=== PATIENT | female | born 1950 | race African-American/Black ===

== ENCOUNTER 2016-03-19 06:22 | Day surgery (SDC) | payer OTHER, BC ==
[2016-03-15 19:08] VITALS: BMI 27.5
[2016-03-19] MEDS ORDERED: SUCCINYLCHOLINE CHLORIDE 200 MG/10 ML VIAL ONE (07:08)
[2016-03-19] MEDS ORDERED: ePHEDrine SULFATE 50 MG/1 ML AMPULE ONE (07:08)
[2016-03-19] MEDS ORDERED: MIDAZOLAM HCL 2 MG/2 ML SINGLE DOSE VIAL ONE (07:08)
[2016-03-19] MEDS ORDERED: PROPOFOL 20 ML ONE (07:09)
[2016-03-19] MEDS ORDERED: LIDOCAINE HCL 2% (20ML MULTI-DOSE VIAL) NR ONE (07:23)
[2016-03-19] MEDS ORDERED: LIDOCAINE HCL 1%, 10 MG/ML (50 mL VIAL) IJ ONE (08:00)
[2016-03-19 08:49] VITALS: TEMP 97.8
[2016-03-19] MEDS ORDERED: oxyCODONE HCL 5 MG TABLET ONE ×2 (09:50→10:33)
[2016-03-19] MEDS ORDERED: KETOROLAC TROMETHAMINE 30 MG/1 ML VIAL ONE (09:58)
[2016-03-19 11:31] VITALS: BP 156/82; PULSE 66
--- NOTE | 2016-03-20 18:40 | OP ---
DATE OF OPERATION: 03/19/2016 SURGEON: Akbar Pelaez MD BOX BENDER: LORIE Penn PREOPERATIVE DIAGNOSES: 1. Right hand middle finger/third finger trigger finger/tenosynovitis. 2. Right hand fourth finger/ring finger trigger finger/tenosynovitis. 3. Right hand small finger/fifth finger trigger finger/tenosynovitis. POSTOPERATIVE DIAGNOSES: 1. Right hand middle finger/third finger trigger finger/tenosynovitis. 2. Right hand fourth finger/ring finger trigger finger/tenosynovitis. 3. Right hand small finger/fifth finger trigger finger/tenosynovitis. PROCEDURE: 1. Surgical release of trigger finger, right hand, third finger. 2. Surgical release of trigger finger, right hand, fourth finger. 3. Surgical release of trigger finger, right hand, fifth finger. FINDINGS: Third, fourth, and fifth fingers all had evidence of tenosynovitis with the same finding of thickened A1 luz and impingement upon the flexor tendons and fraying of the flexor tendons. PROCEDURE: Informed consent was obtained and taken to the operating room where the right upper extremity was prepped and draped in a sterile fashion. Tourniquet was placed in the upper arm and inflated to 250 mmHg. Starting with the third middle finger, an incision was made on the area of the A1 luz along the palm. This was taken down. The A1 luz was identified. The luz was incised with a knife and extended proximally and distally with a blunt tenotomy scissors. A curved hemostat was placed around the tendons and this allowed for bringing the tendons out of the wound. Flexion and extension was free at this point and minor fraying was debrided. No impingement was noted after release. Please note the exact same procedure was done on the fourth finger and the fifth finger. All wounds were irrigated with copious amounts of irrigation and closed with 4-0 nylon in single interrupted sutures. AKBAR PELAEZ M.D. [id number]
== END 2016-03-19 11:20 | disposition home or self-care (01) ==
LOC: FASU 06:22
PROVIDERS: ATTEND Orthopaedic Surgery
PROC: 0LN70ZZ Release Right Hand Tendon, Open Approach (ICD-10-PCS; 2016-03-19)
PROC: 0LN70ZZ Release Right Hand Tendon, Open Approach (ICD-10-PCS; 2016-03-19)
PROC: 0LN70ZZ Release Right Hand Tendon, Open Approach (ICD-10-PCS; principal; 2016-03-19 08:01)
DX: M65.331 Trigger finger, right middle finger (principal); M65.341 Trigger finger, right ring finger; M65.351 Trigger finger, right little finger

== ENCOUNTER 2017-05-02 21:07 | Emergency (ER) | payer OTHER, BC ==
[2017-05-02 21:21] VITALS: BP 132/80; PULSE 78; TEMP 98.5; BMI 28.2
--- NOTE | 2017-05-02 21:24 | PDOC ---
History of Present Illness - General Chief Complaint: Respiratory Stated Complaint: PRODUCTIVE COUGH Time Seen by Provider: 05/02/17 21:09 - History of Present Illness Initial Comments: This 67-year-old woman with a history of coronary artery disease/TIA/ hyperlipidemia presents with several day history of productive cough. She was seen by her PMD, Dr. Joaquin Phillips 4 days ago. She is given a "shot" followed by prescription for antibiotic. She believes the injection was a steroid medication . The patient has been taking the antibiotic (Augmentin) as prescribed. She presents tonight because she continues to have cough productive of yellowish green sputum and intermittent fever. She is concerned that she has pneumonia. She denies severe shortness of breath, persistent wheezing, shaking chills. Patient has no history of asthma; she was a smoker many years ago but has not smoked in recent times. Past History - Past Medical History Allergies/Adverse Reactions: Allergies Allergy/AdvReac Type Severity Reaction Status Date / Time Iodinated Contrast- Oral and Allergy Intermediate Swelling Verified 05/02/17 21: 12 IV Dye [IV Dye, Iodine Containing Contrast ] Home Medications: Ambulatory Orders Olmesartan/Hydrochlorothiazide [Benicar Hct 40-12.5 mg Tablet] 1 each PO DAILY # 0 tablet 09/22/12 Duloxetine [Cymbalta -] 30 mg PO DAILY 09/27/12 Zolpidem Tartrate [Ambien] 10 mg PO HS PRN 09/24/15 Atorvastatin Ca [Lipitor] 20 mg PO HS 05/02/17 Anemia: Yes (Occassionally) Asthma: No Cancer: No Cardiac Disorders: Yes (CAD) CVA: Yes (TIA approx 1996) COPD: No CHF: No Dementia: No Diabetes: No GI Disorders: Yes (REFLUX) Disorders: No HTN: Yes Hypercholesterolemia: No (past hx) Liver Disease: Yes (HEMANGIOMA) Seizures: No Thyroid Disease: No - Surgical History Abdominal Surgery: Yes (mystenteric cyst 10yo) Appendectomy: No Cardiac Surgery: Yes (CARDIAC STENT 11/2011) Cholecystectomy: No Lung Surgery: No Neurologic Surgery: No Orthopedic Surgery: Yes (bilateral knee, right rotator cuff repair) - Suicide/Smoking/Psychosocial Hx Smoking Status: No Smoking History: Never smoked Have you smoked in the past 12 months: Yes Number of Cigarettes Smoked Daily: 10 If you are a former smoker, when did you quit?: 8 years ago Information on smoking cessation initiated: No Hx Alcohol Use: No Drug/Substance Use Hx: No Substance Use Type: Alcohol Hx Substance Use Treatment: No Review of Systems - Review of Systems Able to Perform ROS?: Yes Comments:: 12 point review of systems is negative except for what is noted in the history of present illness *Physical Exam - Vital Signs Last Vital Signs Temp Pulse Resp BP Pulse Ox 98.5 F 78 16 132/80 100 05/02/17 21:17 05/02/17 21:17 05/02/17 21:17 05/02/17 21:17 05/02/17 21:17 - Physical Exam Comments: GENERAL: Adult female, alert and oriented 3, speaking in full sentences in no respiratory distress Temperature 98.5F, pulse oximetry 100 percent on room air, respiratory rate 16/ minute HEAD: Normal with no signs of trauma. EYES: PERRLA, EOMI, sclera anicteric, conjunctiva clear. ENT: Ears normal, nares patent, oropharynx clear without exudates. Moist mucous membranes. NECK: Normal range of motion, supple without lymphadenopathy, JVD, or masses. LUNGS: Breath sounds equal, clear to auscultation bilaterally. No wheezes, and no crackles. HEART:Regular rate and rhythm, normal S1 and S2 without murmur, rub or gallop. ABDOMEN:.normal bowel sounds No guarding,tenderness or rebound.No masses No distention. EXTREMITIES: Normal range of motion, no edema. No clubbing or cyanosis. No erythema, or tenderness. NEUROLOGICAL: Cranial nerves II through XII grossly intact. Normal speech. No focal neurological deficits. MUSCULOSKELETAL: Back non-tender to palpation, no CVA tenderness SKIN: Warm, Dry, normal turgor, no rashes or lesions noted. Progress Note - Progress Note Progress Note: Although the patient has no clear signs of pneumonia on her exam with no fever, excellent oxygenation, and clear lungs on auscultatory exam, chest x-ray was performed to evaluate for pneumonia. No evidence of infiltrate or effusion on chest x-ray. Patient reassured that she should continue Augmentin for full course as prescribed. Presentation consistent with bronchitis, exacerbation of COPD/ asthma She should drink plenty of fluids and introduce humidified air in her home environment through vaporizer. She should follow-up with as planned and return to the emergency room if she has severe shortness of breath/wheezing/ persistent high fever *DC/Admit/Observation/Transfer Diagnosis at time of Disposition: Bronchitis Strain of chest wall Qualifiers: Encounter type: initial encounter Qualified Code(s): S29.011A - Strain of muscle and tendon of front wall of thorax, initial encounter - Discharge Dispostion Disposition: HOME Condition at time of disposition: Stable - Referrals Referrals: Joaquin Phillips MD [Primary Care Provider] - 1 week - Patient Instructions Printed Discharge Instructions: DI for Acute Bronchitis Additional Instructions: Drink plenty of fluids Continue Augmentin as prescribed Use a vaporizer, especially at night Return to ER if you have persistent high fever/difficulty breathing/wheezing Follow-up with Dr. Phillips within 1 week - Post Discharge Activity
== END 2017-05-02 22:24 | disposition home or self-care (01) ==
LOC: FER 21:07
DX: S29.011A Strain of muscle and tendon of front wall of thorax, initial encounter (principal); J40 Bronchitis, not specified as acute or chronic; Z87.891 Personal history of nicotine dependence; Z95.5 Presence of coronary angioplasty implant and graft; I25.10 Atherosclerotic heart disease of native coronary artery without angina pectoris; K21.9 Gastro-esophageal reflux disease without esophagitis
CPT/HCPCS: 71046-TC-FY; 99281-25

== ENCOUNTER 2017-09-02 06:06 | Day surgery (SDC) | payer OTHER, BC ==
[2017-08-26 13:05] VITALS: BMI 28.2
[2017-09-02] MEDS ORDERED: ROPIVACAINE HCL 0.5% 30ML VIAL ONE (07:05)
[2017-09-02] MEDS ORDERED: MIDAZOLAM HCL 2 MG/2 ML SINGLE DOSE VIAL ONE (07:05)
[2017-09-02] MEDS ORDERED: EPINEPHrine 1:1,000 1 MG/1 ML - 30ML VIAL (INJECTION) ONE (07:08)
[2017-09-02] MEDS ORDERED: DEXAMETHASONE SOD PHOSPHATE 4 MG/1 ML VIAL ONE (07:29)
[2017-09-02] MEDS ORDERED: ceFAZolin SODIUM 1 GM VIAL ONE (07:29)
[2017-09-02] MEDS ORDERED: ONDANSETRON 4 MG/2 ML VIAL ONE (07:29)
[2017-09-02] MEDS ORDERED: PROPOFOL 20 ML ONE ×2 (07:30)
[2017-09-02] MEDS ORDERED: methylPREDNISolone ACET (DEPO) 40 MG/1 ML VIAL ONE (07:42)
[2017-09-02] MEDS ORDERED: LIDOCAINE HCL 1%, 10 MG/ML (20ML VIAL) ONE (07:43)
[2017-09-02] MEDS ORDERED: LIDOCAINE HCL 1%, 10 MG/ML (50 mL VIAL) IJ ONE ×2 (08:22)
[2017-09-02] MEDS ORDERED: methylPREDNISolone ACET (DEPO) 40 MG/1 ML VIAL IM ONE (08:22)
[2017-09-02] MEDS ORDERED: ONDANSETRON 4 MG/2 ML VIAL IVPUSH PRN (09:09)
[2017-09-02] MEDS ORDERED: oxyCODONE HCL 5 MG TABLET PO PRN (09:09)
[2017-09-02 09:23] VITALS: TEMP 98.2
--- NOTE | 2017-09-02 10:33 | OP ---
DATE OF OPERATION: 09/02/2017 SURGEON: Imelda Pelaez MD ASSISSTANT: LORIE Penn PREOPERATIVE DIAGNOSES: 1. Left shoulder rotator cuff tear. 2. Left shoulder adhesive capsulitis. 3. Left shoulder impingement syndrome. 4. Left shoulder acromioclavicular joint disease. 5. Left shoulder superior labral, anterior-posterior synovitis. POSTOPERATIVE DIAGNOSES: 1. Left shoulder rotator cuff tear. 2. Left shoulder adhesive capsulitis. 3. Left shoulder impingement syndrome. 4. Left shoulder acromioclavicular joint disease. 5. Left shoulder superior labral, anterior-posterior synovitis. PROCEDURES: 1. Left shoulder arthroscopy with arthroscopic rotator cuff repair. CPT code 80234. 2. Left shoulder arthroscopy with lysis and resection of adhesions. CPT code 09596. 3. Left shoulder arthroscopy with subacromial decompression. CPT code 47247. 4. Left shoulder arthroscopy with resection of the distal clavicle, acromioclavicular joint. CPT code 29413. 5. Left shoulder arthroscopy with debridement. CPT code 66046. FINDINGS: 1. Glenoid humerus synovitis. 2. Superior labral tear to anterior posterior type 2 with extension type 4. 3. Glenoid humeral central grade 2-3 cartilage injury, central glenoid, anterior glenoid. 4. Central grade 2-3 cartilage injury to anterior humerus. 5. Full-thickness supraspinatus tear. 6. Partial biceps tear 10%. 7. Small cartilage loose bodies, glenohumeral joint. 8. Type 3 acromion with anterior spurring, subacromial space. 9. Thickened scar tissue and adhesions, subacromial space. 10. Glenohumeral adhesions with synovitis. 11. Type 2 acromial anterior spurring. 12. Posterior subacromial space adhesions and scar tissue. REPAIR TYPE: Single mattress suture was placed into the supraspinatus and secured to a bleeding bone bed using the Opus technique. DESCRIPTION OF PROCEDURE: Informed consent was obtained. The patient was taken to the operating room, where the upper extremity was prepped and draped in a sterile fashion. The shoulder was manipulated for a full range of motion. A posterior incision portal was made and directed to the glenohumeral joint. Under direct visualization, an anterior incision and portal was made. Extensive synovitis, as well as chondral injuries throughout the glenohumeral joint were debrided and removed. Any identified labral injuries, including the superior labral tear, anterior and posterior, and anterior labrum torn portions, were removed as well. The rotator cuff was visualized and noted to have a full-thickness tear. The edges were debrided. The posterior incision portal was redirected to the subacromial space where a lateral incision portal was made. Excessive and thickened scar tissue noted throughout the subacromial space, including bursal and scar tissue, were removed. The type 2 acromion was converted into a flattened type 1 using a bur for subacromial decompression. The distal inferior spur at the distal clavicle was also debrided with the use of an accessory portal in the acromioclavicular joint. The edges of the rotator cuff were identified. Sutures were placed into the rotator cuff and secured using anchors through the greater tuberosity. Prior to securing, a bleeding bed was made using a small bur, creating a bleeding surface of the rotator cuff insertion. The shoulder was then drained, a single suture was placed in all portals, a sterile dressing was placed and the patient was transferred to the recovery room without complication. IMELDA PELAEZ M.D. [id number]
[2017-09-02 11:17] VITALS: BP 157/86; PULSE 82
--- NOTE | 2017-09-07 14:07 | PATH ---
Surgical Pathology Report Patient Name: ERMA COLEMAN Med. Rec. #: [id number] /Age/Gender: 1950 (Age: 67) / F Account: [id number] Location: [facility] Taken: 09/02/2017 Received: 09/02/2017 Reported: 09/07/2017 Physicians: Akbar Pappas M.D. Specimen([facility]) [facility] Clinical History Impingement syndrome left shoulder Final Diagnosis SHOULDER, LEFT, ARTHROSCOPIC SHAVINGS: FIBROSYNOVIAL TISSUE, CARTILAGE, BONE AND SKELETAL MUSCLE. Electronically Signed Jyoti Bates M.D. Gross Description Received in formalin labeled "left shoulder shavings," is a 5.0 x 4.8 x 0.4 cm aggregate of saunders-yellow soft tissue fragments. A technical support representative portion is submitted in one cassette. [email or web address]/09/05/2017
== END 2017-09-02 11:10 | disposition home or self-care (01) ==
LOC: FASU 06:06
PROVIDERS: ATTEND Orthopaedic Surgery
PROC: 0RNK4ZZ Release Left Shoulder Joint, Percutaneous Endoscopic Approach (ICD-10-PCS; 2017-09-02)
PROC: 0PBB4ZZ Excision of Left Clavicle, Percutaneous Endoscopic Approach (ICD-10-PCS; 2017-09-02)
PROC: 0RBK4ZZ Excision of Left Shoulder Joint, Percutaneous Endoscopic Approach (ICD-10-PCS; 2017-09-02)
PROC: 0LQ24ZZ Repair Left Shoulder Tendon, Percutaneous Endoscopic Approach (ICD-10-PCS; principal; 2017-09-02 07:30)
DX: M75.102 Unspecified rotator cuff tear or rupture of left shoulder, not specified as traumatic (principal); M75.42 Impingement syndrome of left shoulder; M19.012 Primary osteoarthritis, left shoulder; M65.812 Other synovitis and tenosynovitis, left shoulder
CPT/HCPCS: 88304-TC

== ENCOUNTER 2017-12-23 08:10 | Day surgery (SDC) | payer OTHER, BC ==
[2017-12-19 14:21] VITALS: BMI 29.9
[2017-12-23] MEDS ORDERED: ONDANSETRON 4 MG/2 ML VIAL IVPUSH PRN (08:53)
[2017-12-23] MEDS ORDERED: LACTATED RINGERS SOLUTION 1,000 ML IV SCH (09:00)
[2017-12-23] MEDS ORDERED: LIDOCAINE HCL/PF 2% SDV 5ML VIAL ONE (09:13)
[2017-12-23] MEDS ORDERED: PROPOFOL 20 ML ONE (09:13)
[2017-12-23] MEDS ORDERED: MIDAZOLAM HCL 2 MG/2 ML SINGLE DOSE VIAL ONE (09:14)
[2017-12-23] MEDS ORDERED: DEXAMETHASONE SOD PHOSPHATE 4 MG/1 ML VIAL ONE (09:26)
[2017-12-23] MEDS ORDERED: KETOROLAC TROMETHAMINE 30 MG/1 ML VIAL ONE (09:26)
[2017-12-23] MEDS ORDERED: ONDANSETRON 4 MG/2 ML VIAL ONE ×2 (09:26→12:16)
[2017-12-23] MEDS ORDERED: LIDOCAINE HCL 2% (20ML MULTI-DOSE VIAL) NR ONE (09:39)
[2017-12-23] MEDS ORDERED: BUPIVACAINE HCL/PF 2.5 MG/ML - 30 ML VIAL IJ ONE (09:39)
[2017-12-23] MEDS ORDERED: LIDOCAINE HCL 2% (50ML VIAL) INF ONE (10:40)
[2017-12-23] MEDS ORDERED: BUPIVACAINE HCL/PF 0.25% (2.5MG/ML) 10 ML VIAL IJ ONE (10:59)
[2017-12-23] MEDS ORDERED: ONDANSETRON 4 MG/2 ML VIAL IVPUSH ONE (12:18)
[2017-12-23 13:17] VITALS: TEMP 98.1
[2017-12-23 13:53] VITALS: BP 143/80; PULSE 60
--- NOTE | 2017-12-24 12:51 | OP ---
DATE OF OPERATION: 12/23/2017 SURGEON: Akbar Pelaez MD ASSISSTANT: LORIE Penn PREOPERATIVE DIAGNOSIS: 1. Left hand trigger-finger, thumb. 2. Left hand trigger-finger, 4th finger. POSTOPERATIVE DIAGNOSIS: 1. Left hand trigger-finger, thumb. 2. Left hand trigger-finger, 4th finger. PROCEDURE: 1. Left thumb trigger-finger release (CPT code 79970). 2. Left 4th finger release (CPT code 68952). FINDINGS: Both the thumb and the 4th finger had thickened A1 luz impingement on flexor tendons and minor fraying. DESCRIPTION OF PROCEDURE: Informed consent was obtained. The patient came to the operating room, where the left upper extremity was prepped and draped in a sterile fashion. A tourniquet was placed on the upper arm and inflated to 250 mmHg. A horizontal incision was made on the thumb and a longitudinal incision was made on the 4th finger at the A1 luz. Both incisions, the A1 luz was identified and sized, extended proximally and distally with blunt tenotomy scissors paying careful attention to avoid neurovascular structures. Wounds were irrigated with copious amounts of irrigation, and curved hemostat was placed around the tendons. It was found to be completely free after release, and minor fraying was debrided in both the thumb and 4th finger. Please note that two separate incisions, one for the thumb and one for the 4th finger, were made. It was irrigated again, closed with a 4-0 nylon single interrupted sutures. The PA listed above was present and assisted at surgery. Their presence was absolutely medically necessary for the completion of the procedure. They helped hold the arthroscopy, pass instruments (and implants when indicated) and the procedure could not have been completed without their assistance. ADDENDUM Patient did have a small felon on the right hand, 4th finger. A minor procedure was done with the patient under anesthesia where it was incised and irrigated with a dressing placed . AKBAR PELAEZ M.D. [id number]
== END 2017-12-23 13:55 | disposition home or self-care (01) ==
LOC: FASU 08:10
PROVIDERS: ATTEND Orthopaedic Surgery
PROC: 0LN80ZZ Release Left Hand Tendon, Open Approach (ICD-10-PCS; 2017-12-23)
PROC: 0H9FXZZ Drainage of Right Hand Skin, External Approach (ICD-10-PCS; 2017-12-23)
PROC: 0LN80ZZ Release Left Hand Tendon, Open Approach (ICD-10-PCS; principal; 2017-12-23 10:41)
DX: M65.312 Trigger thumb, left thumb (principal); M65.342 Trigger finger, left ring finger; L03.011 Cellulitis of right finger
CPT/HCPCS: 94760

== ENCOUNTER 2018-02-24 06:24 | Day surgery (SDC) | payer OTHER, BC ==
[2018-02-16 15:25] VITALS: BMI 27.4
[2018-02-24] MEDS ORDERED: ePHEDrine SULFATE 50 MG/1 ML AMPULE ONE (07:03)
[2018-02-24] MEDS ORDERED: PROPOFOL 20 ML ONE ×4 (07:03)
[2018-02-24] MEDS ORDERED: MIDAZOLAM HCL 2 MG/2 ML SINGLE DOSE VIAL ONE (07:04)
[2018-02-24] MEDS ORDERED: SUCCINYLCHOLINE CHLORIDE 200 MG/10 ML VIAL ONE (07:04)
[2018-02-24] MEDS ORDERED: LIDOCAINE HCL 2% (20ML MULTI-DOSE VIAL) NR ONE (07:14)
[2018-02-24] MEDS ORDERED: LIDOCAINE HCL 2% (50ML VIAL) INF ONE (08:04)
[2018-02-24 10:19] VITALS: BP 130/72; PULSE 68; TEMP 97.9
--- NOTE | 2018-02-26 21:39 | OP ---
DATE OF OPERATION: 02/24/2018 SURGEON: Imelda Pelaez MD CONSTRUCTION CARPENTER: LORIE Penn PREOPERATIVE DIAGNOSIS: Right wrist carpal tunnel syndrome. POSTOPERATIVE DIAGNOSIS: Right wrist carpal tunnel syndrome. PROCEDURE: Right carpal tunnel release, CPT code 55766. FINDINGS: Thickened transverse carpal ligament with impingement of median nerve. PROCEDURE: Under sterile conditions, right the upper extremity was prepped and draped in a sterile fashion. Incision was made along the longitudinal portion of the carpal tunnel. A longitudinal incision was made along the proximal portion of the palm, following the palm crease. This was taken down to the transcarpal ligament, which was released initially with scalpel and then extended proximally and distally using blunt tenotomy scissors. The median nerve was identified and completely released from impingement by the transcarpal ligament. The wound was then irrigated with copious amounts of irrigation. Skin was closed with 5-0 nylon in single interrupted sutures. The PA listed above was present and assisted at surgery. Their presence was absolutely medically necessary for the completion of the procedure. They helped hold the arthroscopy, pass instruments (and implants when indicated) and the procedure could not have been completed without their assistance. IMELDA PELAEZ M.D. [id number]
== END 2018-02-24 10:19 | disposition home or self-care (01) ==
LOC: FASU 06:24
PROVIDERS: ATTEND Orthopaedic Surgery
PROC: 01N50ZZ Release Median Nerve, Open Approach (ICD-10-PCS; principal; 2018-02-24 08:04)
DX: G56.01 Carpal tunnel syndrome, right upper limb (principal)

== ENCOUNTER 2018-10-20 22:56 | Emergency (ER) | payer OTHER, BC ==
[2018-10-20 23:06] VITALS: BMI 25.7
[2018-10-20] MEDS ORDERED: DIPHTH,PERTUSS(ACELL),TET 0.5 ML DISP.SYRIN IM ONE (23:46)
[2018-10-21] MEDS ORDERED: AMOX TR/POT CLAV 875MG/125MG TABLETS (FP) PO ONE (00:09)
--- NOTE | 2018-10-21 00:25 | PDOC ---
History of Present Illness - General Chief Complaint: Injury Stated Complaint: R FOOT HURT BY NAIL Time Seen by Provider: 10/20/18 23:35 History Source: Patient Exam Limitations: No Limitations Past History - Past Medical History Allergies/Adverse Reactions: Allergies Allergy/AdvReac Type Severity Reaction Status Date / Time Iodinated Contrast Media Allergy Intermediate Swelling Verified 10/20/18 23:06 [IV Dye, Iodine Containing Contrast ] Home Medications: Ambulatory Orders Zolpidem Tartrate [Ambien] 10 mg PO HS PRN 09/24/15 Aspirin Coated [Ecotrin -] 81 mg PO DAILY 08/26/17 Atorvastatin Ca [Lipitor] 40 mg PO HS 08/26/17 Duloxetine HCl [Cymbalta] 60 mg PO DAILY 08/26/17 Olmesartan/Hydrochlorothiazide [Benicar Hct 40-25 mg Tablet] 1 tab PO DAILY 08/08 Gabapentin 300 mg PO HS 02/16/18 Amoxicillin/Potassium Clav [Augmentin 875-125 Tablet] 1 each PO BID #13 tablet 10/21/18 Anemia: Yes (IN THE PAST) Asthma: No Cancer: No Cardiac Disorders: Yes (CAD) CVA: Yes (TIA approx 1996) COPD: No CHF: No Dementia: No Diabetes: No GI Disorders: Yes (REFLUX) Disorders: No HTN: Yes Hypercholesterolemia: Yes Liver Disease: Yes (HEMANGIOMA) Seizures: No Thyroid Disease: No - Surgical History Abdominal Surgery: Yes (MESENTERIC CYST REMOVED AT AGE 6) Appendectomy: No Cardiac Surgery: Yes (CARDIAC STENT 11/2011) Cholecystectomy: No Lung Surgery: No Neurologic Surgery: No Orthopedic Surgery: Yes (RIGHT ROTATOR CUFF REPAIR-2013 TRIGGER RING AND THUMB RELEASE 2017) - Suicide/Smoking/Psychosocial Hx Smoking Status: No Smoking History: Never smoked Have you smoked in the past 12 months: No Number of Cigarettes Smoked Daily: 10 If you are a former smoker, when did you quit?: 2007 Information on smoking cessation initiated: No Hx Alcohol Use: No Drug/Substance Use Hx: No Substance Use Type: Alcohol Hx Substance Use Treatment: No *Physical Exam - Vital Signs Last Vital Signs Temp Pulse Resp BP Pulse Ox 97.9 F 81 16 146/89 100 10/20/18 23:03 10/20/18 23:03 10/20/18 23:03 10/20/18 23:03 10/20/18 23:03 - Physical Exam General Appearance: No: Apparent Distress Extremity: positive: Other (small puncture wound along plantar aspect of R foot , no active bleeding, no surrounding erythema, no foul odor or drainage, no fluctuance to site) Integumentary: positive: Normal Color. negative: Swelling, Ecchymosis, Bruising Neurologic: positive: Alert, Normal Mood/Affect Medical Decision Making - Medical Decision Making 68 y/o F hx of CAD s/p PCI, HTN, HLD, TIA, anemia, GERD, arthritis presents s/p stepping on nail in her backyard on her R foot today around 9:30 PM. Patient was wearing sneakers and socks. Patient brought the nail with her. Denies fever , sob, cp, redness, foul odor/discharge. Unsure of last tetanus R foot puncture wound Plan: Tetanus As d/w Dr. Mathis, does not feel Pseudomonas coverage is necessary at this time; recommends Augmentin Not suspicious for retained FB as patient brought nail with her Return precautions provided to patient 10/21/18 00:26 *DC/Admit/Observation/Transfer Diagnosis at time of Disposition: Puncture wound of foot Qualifiers: Encounter type: initial encounter Laterality: right Qualified Code(s): S91.331A - Puncture wound without foreign body, right foot, initial encounter - Discharge Dispostion Disposition: HOME Condition at time of disposition: Stable Decision to Admit order: No - Prescriptions Prescriptions: Amoxicillin/Potassium Clav [Augmentin 875-125 Tablet] 1 each PO BID #13 tablet - Referrals Referrals: Joaquin Phillips MD [Primary Care Provider] - 2 Days - Patient Instructions Printed Discharge Instructions: DI for Puncture Wound Additional Instructions: Thank you for choosing [facility]. It was a pleasure taking care of you. Your tetanus was updated Please take the antibiotics as prescribed Please follow-up with your doctor in 2 days Return to the Emergency Department if your symptoms worsen or persist, you have fever, redness, streaking, foul/purulent drainage or other concerning symptoms. - Post Discharge Activity
[2018-10-21] MEDS ORDERED: DIPHTH,PERTUSS(ACELL),TET 0.5 ML DISP.SYRIN IM ONE (00:35)
[2018-10-21] MEDS ORDERED: AMOX TR/POT CLAV 875MG/125MG TABLETS (FP) ONE (00:35)
[2018-10-21 01:04] VITALS: BP 148/93; PULSE 71; TEMP 98.3
== END 2018-10-21 01:07 | disposition home or self-care (01) ==
LOC: JER 22:56
PROC: 3E0234Z Introduction of Serum, Toxoid and Vaccine into Muscle, Percutaneous Approach (ICD-10-PCS; principal; 2018-10-20)
DX: S91.332A Puncture wound without foreign body, left foot, initial encounter (principal); W45.0XXA Nail entering through skin, initial encounter; Y93.89 Activity, other specified; Y92.89 Other specified places as the place of occurrence of the external cause; Y99.8 Other external cause status; I25.10 Atherosclerotic heart disease of native coronary artery without angina pectoris; I10 Essential (primary) hypertension; Z95.5 Presence of coronary angioplasty implant and graft; E78.00 Pure hypercholesterolemia, unspecified; Z86.2 Personal history of diseases of the blood and blood-forming organs and certain disorders involving the immune mechanism; Z86.73 Personal history of transient ischemic attack (TIA), and cerebral infarction without residual deficits
CPT/HCPCS: 90715; 99281-25

== ENCOUNTER 2020-09-12 07:15 | Day surgery (SDC) | payer OTHER, BC ==
[2020-09-08 16:45] VITALS: BMI 26.5
[2020-09-12] MEDS ORDERED: MIDAZOLAM HCL 2 MG/2 ML SINGLE DOSE VIAL ONE (08:23)
[2020-09-12 09:32] VITALS: TEMP 98.3
[2020-09-12 10:51] VITALS: BP 141/72; PULSE 78
== END 2020-09-12 10:45 | disposition home or self-care (01) ==
LOC: FASU 07:15
PROVIDERS: ATTEND Orthopaedic Surgery
PROC: 01N50ZZ Release Median Nerve, Open Approach (ICD-10-PCS; principal; 2020-09-12 08:50)
DX: G56.02 Carpal tunnel syndrome, left upper limb (principal)

== ENCOUNTER 2021-12-16 19:52 | Observation (INO) | payer OTHER, BC ==
[2021-12-16] MEDS ORDERED: LACTATED RINGERS SOLUTION 1000 ML INFUS.BAG IV ONE (21:00)
[2021-12-16] MEDS ORDERED: ACETAMINOPHEN 1000 MG/100 ML BAG IVPB ONE (21:00)
[2021-12-16] MEDS ORDERED: ACETAMINOPHEN INJECTION 100 ML IVPB ONE (21:26)
[2021-12-16 21:37] LABS: BASO % 0.6 % (0-2.0); EOS % 1.6 % (0-4.5); HEMATOCRIT 35.2 % (32.4-45.2); HEMOGLOBIN 11.7 GM/dL (10.7-15.3); LYMPH % 21.4 % (8-40); MCH 29.8 pg (25.7-33.7); MCHC 33.3 g/dl (32.0-36.0); MEAN CELL VOLUME 89.7 fl (80-96); MEAN PLT VOLUME 8.7 fl (7.5-11.1); MONO % 10.8 % (3.8-10.2); NEUT % 65.6 % (42.8-82.8); PLATELET COUNT 271 10^3/uL (134-434); RBC 3.93 M/mm3 (3.60-5.2); RDW 14.5 % (11.6-15.6); WHITE BLOOD COUNT 6.7 K/mm3 (4.0-10.0)
[2021-12-16 21:49] LABS: INR 0.93 (0.83-1.09); PROTHROMBIN TIME (PATIENT) 10.7 SEC (9.7-13.0)
[2021-12-16 21:52] LABS: ACTIVATED PTT 27.8 SECONDS (25.2-36.5)
[2021-12-16 21:53] LABS: CALCIUM 9.2 mg/dL (8.5-10.1)
[2021-12-16 21:54] LABS: ALBUMIN 3.8 g/dl (3.4-5.0); BLOOD UREA NITROGEN 23.1 mg/dL (7-18); MAGNESIUM 2.5 mg/dL (1.8-2.4)
[2021-12-16 21:56] LABS: CREATININE 0.9 mg/dL (0.55-1.3)
[2021-12-16 21:58] LABS: BILIRUBIN,TOTAL 0.5 mg/dL (0.2-1); TOT PROT 7.8 g/dl (6.4-8.2)
[2021-12-16 22:02] LABS: N-TERMINAL BNP 133.6 pg/ml (5-125)
[2021-12-17 08:18] LABS: BASO % 0.8 % (0-2.0); EOS % 4.2 % (0-4.5); HEMATOCRIT 36.2 % (32.4-45.2); HEMOGLOBIN 11.7 GM/dL (10.7-15.3); LYMPH % 32.2 % (8-40); MCHC 32.2 g/dl (32.0-36.0); MEAN CELL VOLUME 89.9 fl (80-96); MEAN PLT VOLUME 9.6 fl (7.5-11.1); MONO % 10.3 % (3.8-10.2); NEUT % 52.5 % (42.8-82.8); PLATELET COUNT 261 10^3/uL (134-434); RBC 4.03 M/mm3 (3.60-5.2); RDW 14.6 % (11.6-15.6); WHITE BLOOD COUNT 5.8 K/mm3 (4.0-10.0)
[2021-12-17 08:51] LABS: CALCIUM 9.2 mg/dL (8.5-10.1)
[2021-12-17 08:52] LABS: ALBUMIN 3.7 g/dl (3.4-5.0); BLOOD UREA NITROGEN 16.4 mg/dL (7-18); CREATININE 0.9 mg/dL (0.55-1.3)
[2021-12-17 08:54] LABS: BILIRUBIN,TOTAL 0.6 mg/dL (0.2-1); TOT PROT 7.2 g/dl (6.4-8.2)
[2021-12-17] MEDS ORDERED: metoPROLOL SUCCINATE 25 MG TAB.SR.24H (FP) PO ONE (09:29)
[2021-12-17] MEDS ORDERED: amLODIPine BESYLATE 5 MG TABLET (FP) ONE (09:29)
[2021-12-17] MEDS ORDERED: ASPIRIN COATED 81 MG TABLET.EC ONE (09:29)
[2021-12-17] MEDS ORDERED: ENOXAPARIN NA (PORCINE) 40 MG/0.4 ML DISP.SYRIN SQ ONE (09:30)
[2021-12-17] MEDS: ASPIRIN COATED 81 MG TABLET.EC PO SCH (09:35)
[2021-12-17] MEDS: ENOXAPARIN NA (PORCINE) 40 MG/0.4 ML DISP.SYRIN SQ SCH (09:35)
[2021-12-17] MEDS: metoPROLOL SUCCINATE 25 MG TAB.SR.24H (FP) PO SCH (09:35)
[2021-12-17] MEDS: amLODIPine BESYLATE 5 MG TABLET (FP) PO SCH (09:35)
[2021-12-17] MEDS ORDERED: GABAPENTIN 100 MG CAPSULE PO SCH (22:00)
[2021-12-17] MEDS ORDERED: ATORVASTATIN CA 40 MG TABLET (FP) PO SCH (22:00)
[2021-12-17 23:02] VITALS: BMI 27.4
[2021-12-18 07:20] VITALS: RESP 18
[2021-12-18] MEDS: ASPIRIN COATED 81 MG TABLET.EC PO SCH (10:54)
[2021-12-18] MEDS: metoPROLOL SUCCINATE 25 MG TAB.SR.24H (FP) PO SCH (10:54)
[2021-12-18] MEDS: ENOXAPARIN NA (PORCINE) 40 MG/0.4 ML DISP.SYRIN SQ SCH (10:54)
[2021-12-18] MEDS: amLODIPine BESYLATE 5 MG TABLET (FP) PO SCH ×2 (10:54→10:58)
[2021-12-18] MEDS ORDERED: HYDROCHLOROTHIAZIDE 25 MG TABLET (FP) PO SCH (11:45)
[2021-12-18] MEDS ORDERED: VALSARTAN 160 MG TABLET PO SCH (11:45)
[2021-12-18 14:50] VITALS: BP 132/69; PULSE 84; TEMP 97.8
== END 2021-12-18 15:30 | disposition home or self-care (01) ==
LOC: JER 19:52 → UNDOADMOB 22:17 → JERBED 22:17 → OBSVTOIN 12-17 02:05 → INTOOBSV 12-17 02:05 → JERBED 12-17 11:37 → J4W 12-17 21:56
PROVIDERS: ADMIT Internal Medicine; ATTEND Internal Medicine
PROC: 3E033NZ Introduction of Analgesics, Hypnotics, Sedatives into Peripheral Vein, Percutaneous Approach (ICD-10-PCS; principal; 2021-12-17)
PROC: 3E0337Z Introduction of Electrolytic and Water Balance Substance into Peripheral Vein, Percutaneous Approach (ICD-10-PCS; 2021-12-17)
DX: I25.10 Atherosclerotic heart disease of native coronary artery without angina pectoris (principal); I10 Essential (primary) hypertension; E78.5 Hyperlipidemia, unspecified; R06.00 Dyspnea, unspecified; Z95.5 Presence of coronary angioplasty implant and graft
CPT/HCPCS: 0241U-QW; 36415; 71045-TC-FY; 80053; 83735; 83880; 84443; 84484; 85025; 85610; 85730; 93005; 93010; 93306-TC; 96372; 96374; 99285-25; G0378

== ENCOUNTER 2022-12-28 18:08 | Emergency (ER) | payer OTHER, BC ==
[2022-12-28 18:34] VITALS: BMI 27.7
[2022-12-28] MEDS ORDERED: ACETAMINOPHEN 325 MG TABLET (FP) PO ONE (19:56)
[2022-12-28] MEDS ORDERED: ACETAMINOPHEN 325 MG TABLET (FP) ONE (20:14)
[2022-12-28 21:18] VITALS: BP 151/76; PULSE 83; RESP 18; TEMP 98.5
== END 2022-12-28 22:30 | disposition home or self-care (01) ==
LOC: JER 18:08
DX: S63.501A Unspecified sprain of right wrist, initial encounter (principal); S00.03XA Contusion of scalp, initial encounter; W01.0XXA Fall on same level from slipping, tripping and stumbling without subsequent striking against object, initial encounter; Y92.9 Unspecified place or not applicable
CPT/HCPCS: 70450-TC; 72125-TC; 73030-TC-RT-FY; 73110-TC-RT-FY; 73130-TC-RT-FY; 99284-25

== ENCOUNTER 2024-01-11 23:21 | Inpatient (IN) | payer OTHER, BC ==
[2024-01-12 00:51] LABS: VENOUS BASE EXCESS -1.7 mmol/L (-2-2); VENOUS O2 SATURATION 53.6 % (70-80); VENOUS PCO2 44.5 mmHg (38-52); VENOUS PH 7.349 (7.310-7.410)
[2024-01-12 01:03] LABS: BASO % 0.6 % (0-2.0); CALCIUM 9.8 mg/dL (8.5-10.1); EOS % 2.5 % (0-4.5); HEMATOCRIT 29.9 % (32.4-45.2); LYMPH % 16.9 % (8-40); MCHC 30.2 g/dl (32.0-36.0); MEAN CELL VOLUME 79.2 fl (80-96); MEAN PLT VOLUME 8.3 fl (7.5-11.1); MONO % 7.2 % (3.8-10.2); NEUT % 72.8 % (42.8-82.8); PLATELET COUNT 402 10^3/uL (134-434); RBC 3.78 M/mm3 (3.60-5.2); RDW 18.6 % (11.6-15.6); WHITE BLOOD COUNT 9.4 K/mm3 (4.0-10.0)
[2024-01-12 01:04] LABS: ALBUMIN 3.8 g/dl (3.4-5.0)
[2024-01-12 01:05] LABS: EPI CELLS 6 /uL (0-25.1); HYALINE CASTS 0 /uL (0-3.1); URINE APPEARANCE CLEAR; URINE BACTERIA 53 /uL (0-1359); URINE BILIRUBIN NEGATIVE (NEGATIVE); URINE COLOR YELLOW; URINE GLUCOSE (UA) NEGATIVE (NEGATIVE); URINE KETONE NEGATIVE (NEGATIVE); URINE LEUK ESTERASE 2+ (NEGATIVE); URINE NITRITE NEGATIVE (NEGATIVE); URINE PROTEIN NEGATIVE (NEGATIVE); URINE RBC 8 /uL (0-23.9); URINE UROBILINOGEN 0.2 mg/dL (0.2-1.0); URINE WBC 57 /uL (0-25.8)
[2024-01-12 01:05] LABS: BLOOD UREA NITROGEN 16.7 mg/dL (7-18)
[2024-01-12 01:09] LABS: TOT PROT 7.7 g/dl (6.4-8.2)
[2024-01-12 01:10] LABS: BILIRUBIN,TOTAL 0.6 mg/dL (0.2-1)
[2024-01-12] MEDS: MELATONIN 5 MG TABLETS PO ONE (05:15)
[2024-01-12] MEDS: LOSARTAN 50MG/HCTZ 12.5MG 1 TAB PO SCH (09:20)
[2024-01-12] MEDS: metoPROLOL SUCCINATE 25 MG TAB.SR.24H (FP) PO SCH (09:20)
[2024-01-12] MEDS: CLOPIDOGREL BISULFATE 75 MG TABLET (FP) PO SCH (09:20)
[2024-01-12] MEDS: ASPIRIN COATED 81 MG TABLET.EC PO SCH (11:47)
[2024-01-12 18:25] VITALS: BMI 28.1
[2024-01-12] MEDS: ATORVASTATIN CA 40 MG TABLET (FP) PO SCH (21:19)
[2024-01-12] MEDS ORDERED: ZOLPIDEM TARTRATE 5 MG TABLET PO PRN (22:00)
[2024-01-13 07:13] LABS: BASO % 0.7 % (0-2.0); EOS % 6.7 % (0-4.5); HEMATOCRIT 28.3 % (32.4-45.2); HEMOGLOBIN 8.6 GM/dL (10.7-15.3); LYMPH % 29.1 % (8-40); MCH 23.9 pg (25.7-33.7); MCHC 30.4 g/dl (32.0-36.0); MEAN CELL VOLUME 78.4 fl (80-96); MEAN PLT VOLUME 8.3 fl (7.5-11.1); MONO % 11.7 % (3.8-10.2); NEUT % 51.8 % (42.8-82.8); PLATELET COUNT 359 10^3/uL (134-434); RDW 18.1 % (11.6-15.6); WHITE BLOOD COUNT 5.6 K/mm3 (4.0-10.0)
[2024-01-13 07:21] LABS: POTASSIUM 3.7 mmol/L (3.5-5.1)
[2024-01-13 07:23] LABS: CALCIUM 9.3 mg/dL (8.5-10.1)
[2024-01-13 07:24] LABS: ALBUMIN 3.4 g/dl (3.4-5.0); BLOOD UREA NITROGEN 18.2 mg/dL (7-18)
[2024-01-13 07:27] LABS: CREATININE 1.1 mg/dL (0.55-1.3)
[2024-01-13 07:29] LABS: BILIRUBIN,TOTAL 0.5 mg/dL (0.2-1); TOT PROT 6.8 g/dl (6.4-8.2)
[2024-01-13 11:06] VITALS: BP 149/77; PULSE 73; RESP 17; TEMP 98.1
== END 2024-01-13 14:54 | disposition home or self-care (01) | DRG 69 ==
LOC: JER 23:21 → JERBED 01-12 02:48 → J4W 01-12 08:31 → OBSVTOIN 01-12 10:01
PROVIDERS: ADMIT Internal Medicine; ATTEND Internal Medicine
DX: G45.9 Transient cerebral ischemic attack, unspecified (principal); G81.91 Hemiplegia, unspecified affecting right dominant side; I25.10 Atherosclerotic heart disease of native coronary artery without angina pectoris; I10 Essential (primary) hypertension; E78.5 Hyperlipidemia, unspecified; K21.9 Gastro-esophageal reflux disease without esophagitis; D64.9 Anemia, unspecified
CPT/HCPCS: 36415; 70450-TC; 70496-TC; 70498-TC; 70551-TC; 71045-TC-FY; 80053; 80061; 81003; 82550; 82553; 82803; 82962; 83036; 84484; 85025; 93005; 93010; 93306-TC; 93880-TC; 97116-GP; 97163-GP; 99291; G0378; Q9967